=== PATIENT | male | born 1985 | race Caucasian/White ===

== ENCOUNTER 2019-04-04 11:41 | Day surgery (SDC) | payer BC ==
[2019-04-04] MEDS ORDERED: PROPOFOL 60 ML (15:24)
[2019-04-04] MEDS ORDERED: LIDOCAINE 2% (SDV) 5 ML INJ (15:24)
== END 2019-04-04 18:24 | disposition home or self-care (01) ==
LOC: GIL 11:41
DX: K64.8 Other hemorrhoids (principal); K21.0 Gastro-esophageal reflux disease with esophagitis; K29.00 Acute gastritis without bleeding; E78.5 Hyperlipidemia, unspecified; E66.01 Morbid (severe) obesity due to excess calories; Z68.30 Body mass index [BMI] 30.0-30.9, adult
CPT/HCPCS: 43239; 88305; 88312